=== PATIENT | male | born 1960 | race Caucasian/White ===

== ENCOUNTER 2020-07-11 21:34 | Emergency (ER) | payer OTHER | END 2020-07-11 23:32 | disposition home or self-care (01) | LOC: FER 21:34 | DX: S61.011A Laceration without foreign body of right thumb without damage to nail, initial encounter (principal); W25.XXXA Contact with sharp glass, initial encounter; Y92.89 Other specified places as the place of occurrence of the external cause; Y99.0 Civilian activity done for income or pay; Z23 Encounter for immunization | CPT/HCPCS: 90471; 90715 ==